=== PATIENT | female | born 1990 | race Caucasian/White ===

== ENCOUNTER 2016-08-12 22:44 | Emergency (ER) | payer OTHER ==
[~2016-08-12] VITALS: Ht 170.2 cm; Wt 82.6 kg
[2016-08-12 22:50] VITALS: BP 124/91
[2016-08-12] MEDS ORDERED: NAPROSYN500 MG PO (23:27)
== END 2016-08-12 23:58 | disposition home or self-care (01) ==
LOC: EXP 22:44 → EME 22:44 → EXP 23:58
PROC: 2W3EX1Z Immobilization of Right Hand using Splint (ICD-10-PCS; principal; 2016-08-12)
DX: S60.221A Contusion of right hand, initial encounter (principal); Y99.0 Civilian activity done for income or pay; V49.00XA Driver injured in collision with unspecified motor vehicles in nontraffic accident, initial encounter; F17.200 Nicotine dependence, unspecified, uncomplicated
CPT/HCPCS: 73130; 99281; 99284